=== PATIENT | male | born 1970 | race African-American/Black ===

== ENCOUNTER 2024-08-16 15:40 | Emergency (ER) | payer SELFPAY ==
[2024-08-16] MEDS ORDERED: Boostrix 0.5 ML (Tdap) VIAL (>/=7 yrs of age) ONE (17:34)
[2024-08-16] MEDS ORDERED: Lidocaine 1% PF 5 ML VIAL ONE (18:18)
[2024-08-16] MEDS ORDERED: Bacitracin 1 PK ONE (19:00)
== END 2024-08-16 19:24 | disposition home or self-care (01) ==
LOC: ERS 15:40
DX: S61.212A Laceration without foreign body of right middle finger without damage to nail, initial encounter (principal); I10 Essential (primary) hypertension; F17.220 Nicotine dependence, chewing tobacco, uncomplicated; W26.8XXA Contact with other sharp object(s), not elsewhere classified, initial encounter; Y93.89 Activity, other specified; Z23 Encounter for immunization
CPT/HCPCS: 90715